=== PATIENT | male | born 1985 | race Caucasian/White ===

== ENCOUNTER → 2016-07-03 15:29 | Emergency (ER) | payer OTHER ==
[2016-07-03 17:39] VITALS: BP 177/109
--- NOTE | 2016-07-04 19:40 | ED ---
Barbara Hancock Alok, scribed for Saleem Kearns MD on 07/03/16 at 1634 . Complex/Multi-Sys Presentation - HPI Summary HPI Summary: 30M presents to the ED BIBA for cerebral palsy contractures. On scene pt vitals BP 230/140, HR 120, and diaphoretic with 10/10 pain. Pt states his clozapine prescription ran out and he has been having trouble getting it filled. - History Of Current Complaint Time Seen by Provider: 07/03/16 15:37 Hx Obtained From: Patient, EMS Severity Currently: Moderate Severity Initially: Moderate Alleviating Factor(s): clozapine Associated Signs And Symptoms: Positive: Diaphoresis, Other - Muscle spasm PMH/Surg Hx/FS Hx/Imm Hx Musculoskeletal History: Reports: Other Musculoskeletal History - Cerebral Palsy Infectious Disease History: No Infectious Disease History: Denies: Traveled Outside the [place] in Last 30 Days - Family History Known Family History: Negative: Hypertension - Social History Occupation: Student Alcohol Use: None Substance Use Type: Reports: None Smoking Status (MU): Never Smoked Tobacco Review of Systems Positive: Skin Diaphoresis. Negative: Fever Positive: Other - Muscle Spasm All Other Systems Reviewed And Are Negative: Yes Physical Exam Triage Information Reviewed: Yes Vital Signs On Initial Exam: Initial Vitals Temp Pulse Resp BP Pulse Ox 99.4 F 98 18 180/120 98 07/03/16 16:04 07/03/16 16:04 07/03/16 16:04 07/03/16 16:04 07/03/16 16:04 Vital Signs Reviewed: Yes Appearance: Positive: Well-Appearing, No Pain Distress Skin: Positive: Warm, Skin Color Reflects Adequate Perfusion, Dry Head/Face: Positive: Normal Head/Face Inspection Eyes: Positive: Normal ENT: Positive: Normal ENT inspection Neck: Positive: Supple, Nontender Respiratory/Lung Sounds: Positive: Clear to Auscultation, Breath Sounds Present Cardiovascular: Positive: RRR Abdomen Description: Positive: Nontender, Soft Bowel Sounds: Positive: Present Musculoskeletal: Positive: Normal Neurological: Positive: Normal Psychiatric: Positive: Normal, Affect/Mood Appropriate Diagnostics - Vital Signs Vital Signs Temp Pulse Resp BP Pulse Ox 07/03/16 16:14 99 F 98 18 189/124 99 07/03/16 16:13 92 97 07/03/16 16:04 99.4 F 98 18 180/120 98 - Laboratory Lab Statement: Any lab studies that have been ordered have been reviewed, and results considered in the medical decision making process. Complex Multi-Symp Course/Dx Course Of Treatment: Mr. Farias has run out of his clonazepam that he has been on for a long time. He is in the process of chantale BARRIOS's now that he is at [place]. HE had very intense spasms today that resolved in the ambulance with versed. I will give him a temporary course of the klonopin. - Diagnoses Provider Diagnoses: Medication withdrawal Discharge - Discharge Plan Condition: Stable Disposition: HOME Prescriptions: clonazePAM TAB(*) [Klonopin TAB(*)] 1 mg PO Q6H PRN #30 tab MDD 4 PRN Reason: Spasms Patient Education Materials: Muscle Spasm (ED) Referrals: [facility] [Primary Care Provider] - The documentation as recorded by the Barbara arita Alok accurately reflects the service I personally performed and the decisions made by me, Saleem Kearns MD.
== END | disposition home or self-care (01) ==
LOC: ED 15:29
DX: F19.939 Other psychoactive substance use, unspecified with withdrawal, unspecified (principal); M62.838 Other muscle spasm
CPT/HCPCS: 99283